=== PATIENT | female | born 1965 | race Caucasian/White ===

== ENCOUNTER → 2019-12-02 | Outpatient (CLI) | payer OTHER ==
[~2019-12-02] MED LIST: KEFLEX500 M1 PO; LEVOXYL88 MCG PO; LISINOPRIL-HCT1 EAC1 PO; LOPRESSOR100 M1 PO; LOVASTATIN40 MG PO; NORVASC 2.5 MG2.5 M1 PO
== END ==
LOC: M.LAB 10:01
PROVIDERS: ATTEND Surgery
DX: Z01.812 Encounter for preprocedural laboratory examination (principal); Z11.59 Encounter for screening for other viral diseases